=== PATIENT | female | born 1975 | race Caucasian/White ===

== ENCOUNTER 2021-10-02 09:49 | Emergency (ER) | payer BC, SELFPAY ==
[2021-10-02 09:56] VITALS: BP 173/101; PULSE 97; RESP 16; O2SAT 93
--- OUTSIDE RECORDS SUMMARY | 2021-10-02 10:05 | XMS_ITS | Continuity of Care Document ---
:1975 Author Organization Interface Problems Problem Status Onset Classification Date Comments Sourc e Date Reported Fibromyalgia 02/13/20 02/14/2021 [facility] Active 02/13/20 02/14/[facility] Phot[facility]atitis 02/12/20 02/12/2021 [facility]disorder[facility] 21 [facility] Sj?gren's syndrome 02/12/20 02/12/2021 [facility] (disorder) 21 [facility] Joint pain 02/12/20 02/12/2021 [facility] (finding[facility] [address] [place] [address] Polyarthralgia Active 02/12/20 02/12/2021 [facility] [address] [place] [address] Sicca syndrome Active 02/12/20 02/12/2021 [facility] [address] [place] [address] Photosensitivity Active 02/12/20 02/12/2021 [facility] [address] [place] [address] Procedure carried 01/29/20 01/29/2021 I [facility] Fadia out on subject 21 (situation) Elevated 01/29/20 01/29/2021 [facility] A von blood-pressure 21 reading without diagnosis of hypertension (finding) Breast neoplasm 01/29/20 01/29/2021 [facility] [place] screening status 21 (finding) Diabetic monitoring 01/29/20 01/29/2021 [facility] [place] status (finding) 21 Mild major 01/29/20 01/29/2021 [facility] IM Peds depression, single 21 [place], episode (disorder) I [facility] [place] Non-toxic 01/29/20 01/29/2021 [facility] P eds multinodular goiter 21 [place], (disorder) [facility] A von Gastroesophageal 01/29/20 01/29/2021 [facility] Fadia reflux disease with 21 esophagitis (disorder) Hypothyroidism 01/29/20 01/29/2021 [facility] [place] (disorder) 21 Systemic lupus 01/29/20 01/29/2021 [facility] Peds erythematosus 21 [facility], (disorder) [facility] A von Anemia (disorder) 01/29/20 01/29/2021 I [facility] [place] 21 Major depressive Active 01/29/20 01/29/2021 [facility] IM Peds disorder, single 21 [place], episode, mild [facility] C [place] Nontoxic Active 01/29/20 01/29/2021 [facility] IM P eds multinodular goiter 21 [place], [facility] Av on Reflux Esophagitis Active 01/29/20 01/29/2021 [facility] Fadia 21 Unspecified Active 01/29/20 01/29/2021 [facility] [place] Hypothyroidism 21 SLE (systemic lupus Active 01/29/20 01/29/2021 [facility] Peds erythematosus) 21 [place], [facility] Av on Elevated BP without Active 01/29/20 01/29/2021 [facility] Fadia diagnosis of 21 hypertension Anemia Active 01/29/20 01/29/2021 [facility] A von 21 Screening for Active 01/29/20 01/29/2021 [facility] [place] diabetes mellitus 21 Screening for Active 01/29/20 01/29/2021 [facility] [place] breast cancer 21 Screening for Active 01/29/20 01/29/2021 [facility] [place] hyperlipidemia 21 Gastritis 01/20/20 01/20/2019 [facility] (disorder) [address] [place] [address] Gastritis 01/20/20 01/20/[address] Anemia(<span Active 05/31/2021 [facility] I M Peds SB=[id number]>inder Thomasirmed</span>) [facility] [place], [facility], [facility] Breast lump(<span Resolved 05/31/2021 I [facility] IM Peds [id number]>inder Thomasirmed</span>) [facility] [place], [facility], [facility] Fibromyalgia(<span Active 05/31/2021 [facility] IM Peds [id number]>inder Thomasirmed</span>) [facility] [place], [facility], [facility] Reflux Active 05/31/2021 [facility] IM P eds Esophagitis(<span [place], [id number]>Co [facility] PC nfirmed</span>) Fadia , [facility], [facility] Unspecified Active 05/31/2021 [facility] Peds Hypothyroidism(<spa [place], n [facility] PC [id number]=[id number]>Co [place], IU nfirmed</span>) [facility] Major depressive Active 05/31/2021 IU [facility] IM Peds disorder, single [place], episode, mild(<span [facility] PC [id number]>C [place], IU onfirmed</span>) [facility], [facility] Nontoxic Active 05/31/2021 [facility] IM P eds multinodular Georget own, goiter(<span [facility] PC [id number]>Co Fadia, IU nfirmed</span>) [facility], [facility] SLE (systemic lupus Active 01/29/2021 [facility] IM Peds erythematosus)(<spa [place]q, n [facility] PC [id number]>C [place], IU onfirmed</span>) [facility] Ulcer(<span Resolved 05/31/2021 [facility] IM Peds KG=[id number]>Co [place], nfirmed</span>) [facility] [place], [facility], [facility] Elevated BP without Active 05/31/2021 [facility] PC diagnosis of [place], I U hypertension(<span [facility] [id number]>C University onfirmed</span>) Hos pital Medications Medication Details Route Status Patient Ordering Order Source Instructions Provider Date predniSONE 10 mg
10 Active [facility] oral tablet mg, = 1 021 Fadia, IU Tablet, Health Orally, University Daily, [facility] ce, Dispense: 21 Tablet, Refills: 0, Total Refills: 0, take 1 tablet daily for 2 weeks, then 1/2 tablet daily for 2 weeks, 01/28/21 11:20:00 EDT, Pharmacy: [id number], 1 Tablet Orally Daily,Ins tr:take.. . Omeprazole 20 MG
20 Active [facility] Enteric Coated mg, = 1 021 [place], IU Capsule Capsule, Health Orally, University Daily, [facility], Dispense: 30 Capsule, Refills: 11, Total Refills: 11, 01/28/21 11:20:00 EDT, Pharmacy: [id number], 1 Capsule Orally Daily, 172.7, cm, 01/28/21 10:33:00 EDT, Height CM, 99.5, kg, 01/28/21 10:36:00. .. duloxetine 60 MG
60 Active [facility] Enteric Coated mg, = 1 021 [place], IU Capsule [Cymbalta] Capsule, Heal th Orally, [facility], Dispense: 60 Capsule, Refills: 11, Total Refills: 11, (do not crush or chew), 01/28/21 11:20:00 EDT, [id number], 1 Capsule Orally BID,Instr :(do not crush or chew), 172.7, cm, 01/28/21 10:... Ranitidine 75 MG
75 Active [facility] Oral Tablet mg, = 1 019 Fadia, IU [Zantac] Tablet, Health [facility], [place] BID, PRN [facility], as needed [facility] dyspepsia , [facility], 01/19/19 11:22:27 EDT Ranitidine 75 MG
75 Active [facility] Fadia Oral Tablet mg, = 1 019 [Zantac] Tablet, Orally, BID, PRN as needed for dyspepsia [facility], 01/19/19 11:22:27 EDT 1.5 ML
225 Active [facility] PC fremanezumab-vfrm mg, 019 [place], IU 150 MG/ML [facility], Belindaer satya [Ajovy] [facility], IU Month, [facility] ce, last dose taken 12/18/18, 01/19/19 11:21:57 EDT tizanidine
4 Active [facility] PC mg, 019 Fadia, IU Orally, [facility] TID, [facility], [facility], [facility] 01/19/19 [facility] 11:21:40 EDT duloxetine 60 MG Active IU [facility] Enteric Coated 019 [place] Capsule [Cymbalta] Hospi marlen duloxetine 60 MG
60 Active [facility] PC Enteric Coated mg, = 1 019 [place], IU Capsule [Cymbalta] Tablet, Healt h Orally, [facility], 01/19/19 11:21:21 EDT Buprenorphine 0.9
900 Active [facility] MG Buccal Film mCg, = 1 019 Fadia, IU [Belbuca] Each, [facility], [place] Q12H, [facility], [facility] 07/14/18 20:06:40 EDT Buprenorphine 4.2 Active [facility] MG / Naloxone 0.7 019 [place] MG Buccal Film [facility] [Bunavail] Buprenorphine 4.2
1 Active [facility] P C MG / Naloxone 0.7 Film, 019 Fadia, IU MG Buccal Film Buccal, [facility] [Bunavail] Daily, [facility] ce, 07/14/18 20:06:15 EDT diclofenac sodium
100 Active [facility] PC 100 mg oral mg, = 1 019 [place], IU tablet, extended Tablet, Health release Orally, [facility] ce, with Hospital breakfast , 07/14/18 20:04:16 EDT Diclofenac Sodium Active [facility] I M Peds 0.01 MG/MG Topical 014 Rojelio rudy, Gel [Voltaren] [facility] Diphenhydramine Active [facility] IM Peds Hydrochloride 25 014 Georget own, MG Oral Tablet [facility] [Benadryl] [facility] Protonix Active [facility] IM Peds 014 [place], [facility] Synthroid
25 Active [facility] IM Peds mCg, 014 [place], Orally, [facility] PC Daily, [place], [facility] 05/31/13 [facility] 21:50:24, [facility] multivitamin Active [facility] IM Ped s Multiple Vitamins 014 [facility], oral tablet, [facility] Cymbalta Active [facility] IM Peds 013 [place], [facility] Allergies, Adverse Reactions, Alerts Substance Category Reaction Severity Reaction Status Date Comments S ource type Reported penicillin Assertion Drug Active [facility] P IM allergy Peds [place], [facility] Fad[place], [facility] , [facility] iodine Assertion , Hives Drug Active also [facility] I M topical<sup> allergy Seafood Ped s 1</sup> causes Georgeto wn, hives [facility] [place], [facility] , [facility] sulfa drugs Assertion Nausea Drug Active IU [facility] IM allergy Peds Ge[place]o wn, [facility] [place], [facility] , [facility] Latex Assertion Rash, Drug Active [facility] I M Hives allergy Peds [place], [facility] [place], [facility] , [facility] Seafood Assertion Drug Active [facility] I M allergy Peds [place], [facility] PC Fadia, [facility] , [facility] Immunizations Immunization Date Given Site Status Last Updated Comments Betty rce Results Order Name Results Value Reference Date Interpretation Comments Betty rce Range Urinalysis Color Ur Bhavna 01/19 [facility] [place] (01/19/19 6:01 AM) Hospit al Urinalysis Appear Ur Slightly Cloudy 01/19 [facility] [place] [facility] (01/19/19 6:01 AM) Urinalysis Spec Grav Ur 1.027 1.003 - 01/19 [facility] 1.[address] [facility] Urinalysis pH+ Ur 5.0 5.0 - 8.0 01/19 [facility] [address] [place] [address] Urinalysis Protein Ur 30 mg/dL 01/19 [facility] Urinalysis Gluc Ur Normal 01/19 [facility] mg/dL [facility] Urinalysis Ketones Ur Negative 01/19 [facility] mg/dL [facility] Urinalysis Bili Ur Negative 01/19 [facility] mg/dL [facility] Urinalysis Hgb Ur Negative 01/19 [facility] [place] *NA* [facility] (01/19/19 6:01 AM) Urinalysis Nitrite Ur Negative 01/19 [facility] [place] *NA* [facility] (01/19/19 6:01 AM) Urinalysis Urobilinogen Normal 01/19 [facility] Studies Ur mg/dL [facility] Urinalysis Leukocyte Negative 01/19 [facility] (01/19/19 6:01 AM) Urinalysis WBC Ur 0-5 /hpf 0 - 5 01/19 [facility] Urinalysis RBC Ur 0-2 /hpf 0 - 2 01/19 Health Studies [facility] Urinalysis Bacteria Ur Moderate 01/19 [facility] Studies /hpf [facility] Urinalysis Squam Few /hpf 01/19 [facility] Epithelial Ur [facility] Urinalysis Mucous Ur Present 01/19 [facility] /hpf /[address] [facility] Urinalysis Hyal Cast Ur 0-2 /lpf 01/19 [facility] Chemistry Urine HCG, POC Negative 1 01/19 Resu lt Comment: Test performed at: [facility] [address] [facility] [place] [id number] [place] *NA* [facility] (01/19/19 5:59 AM) Chemistry Lipase SerPl 10 7 - 59 01/19 [facility] QN Units/L [facility] Chemistry Estimated GFR null 01/19 [facility] (CKD-EPI) [facility] Chemistry Estimated CRCL null 01/19 [facility] (CG) [facility] Chemistry Sodium SerPl 135 135 - 145 01/19 [facility] QN mmol/L [facility] Chemistry Potassium 4.3 3.5 - 5.5 01/19 [facility] SerPl QN mmol/L [facility] Chemistry Chloride SerPl 103 98 - 108 01/19 [facility] Studies QN mmol/L [facility] Chemistry CO2 SerPl QN 22 mmol/L 22 - 29 01/19 [facility] Studies /[address] [facility] Chemistry Anion Gap 10 mmol/L 3 - 11 01/19 [facility] /[address] [facility] Chemistry Lab Glucose 104 mg/dL 70 - 99 01/19 [facility] Studies /[address] [facility] Chemistry BUN SerPl QN 14 mg/dL 5 - 20 01/19 [facility] Studies /[address] [facility] Chemistry Creatinine 0.72 0.60 - 01/19 [facility] SerPl QN mg/dL 1. [facility] Chemistry Calcium Total 9.1 mg/dL 8.5 - 10.5 01/19 [facility] Studies SerPl QN /[address] [facility] Chemistry Albumin SerPl 4.4 g/dL 3.5 - 5.0 01/19 [facility] Studies Q [facility] Chemistry Alkaline Phos 91 25 - 125 01/19 [facility] Studies SerPl QN Units/L [facility] Chemistry ALT SerPl QN 26 7 - 52 01/19 [facility] Units/L /[address] [facility] Chemistry AST SerPl QN 26 13 - 39 01/19 [facility] Units/L /[address] [facility] Chemistry Bilirubin 0.5 mg/dL 0.0 - 1.0 01/19 [facility] Studies Total SerPl QN /[address] [facility] Chemistry Total Protein 7.3 g/dL 6.4 - 8.0 01/19 [facility] Studies SerPl QN [facility] Chemistry Troponin-I Pl null 01/19 [facility] Q [facility] Hematology WBC 9.6 3.6 - 10.6 01/19 [facility] K/cumm /[address] [facility] Hematology RBC 5.21 3.71 - 01/19 [facility] Million/C 5. [facility] Hgb 13.9 g/dL 12.0 - 01/19 [facility] 15.[address] [facility] Hematology Hct 42.5 % 35.0 - 01/19 [facility] 49.[address] [facility] Hematology MCV 82 fL 81 - 99 01/19 [facility] /[address] [facility] Hematology MCH 26.7 pg 27.0 - 01/19 [facility] 34.[address] [facility] Hematology MCHC 32.7 g/dL 32.0 - 01/19 [facility] 36.[address] [facility] Hematology RDW 14.6 % 11.5 - 01/19 Health Studies [address] [facility] Hematology Platelet 320 150 - 450 01/19 Health Studies K/ [facility] Hematology MPV 8.6 fL 7.0 - 12.0 01/[address] [facility] Chemistry Urine HCG, POC Negative 2 07/05 Resu lt Comment: Test performed at: [facility] [address] Health [place] [address] [facility] (07/05/18 12:45 PM) Hematology Hct 40.8 % 35.0 - 03 Health Studies 49.[address] [facility] Hematology MCV 82 fL 81 - 99 07/05 Health Studies [facility] Hematology WBC 8.7 3.6 - 10.6 07/05 Health Studies K/ [facility] Hematology MCH 28.3 pg 27.0 - 07/05 Health Studies 34.[address] [facility] Hematology RBC 4.96 3.71 - 07/05 Health Studies Million/C 5.17 [facility] Hgb 14.0 g/dL 12.0 - 07/05 Health Studies 15.[address] [facility] Hematology MCHC 34.3 g/dL 32.0 - 07/05 Health Studies 36.[address] [facility] Hematology RDW 14.4 % 11.5 - 07/05 Health Studies [address] [facility] Hematology Platelet 253 150 - 450 07/05 Health Studies K/ [facility] Hematology MPV 8.4 fL 7.0 - 12.0 07/05 Health Studies [facility] Chemistry Estimated GFR null >=90 07/05 Healt h Studies (CKD-EPI) [facility] Chemistry Chloride SerPl 104 98 - 108 07/05 [facility] Studies QN mmol/L [facility] Chemistry Potassium 5.4 3.5 - 5.5 07/05 Result Health Studies SerPl QN mmol/L /2018 Comment: [facility] hemolyzed Chemistry Calcium Total 9.2 mg/dL 8.5 - 10.5 07/05 Health Studies SerPl QN [facility] Chemistry Creatinine 0.58 0.60 - 07/05 [facility] Studies SerPl QN mg/dL 1.20 /[address] [facility] Chemistry Sodium SerPl 134 135 - 145 07/05 [facility] th Studies QN mmol/L [facility] Chemistry CO2 SerPl QN 22 mmol/L 22 - 07/05 [facility] Chemistry Anion Gap 8 mmol/L 3 - 11 07/05 [facility] Chemistry Lab Glucose 95 mg/dL 70 - 99 07/05 [facility] Chemistry BUN SerPl QN 11 mg/dL 5 - 07/05 [facility] Vital Signs Vital Sign Value Date Comments Source IBW Charted per RT 63.88 kg 02/11/2021 [facility] Height CM 172.7 cm 02/11/2021 [facility] Hospital Weight KG 98.9 kg 02/11/2021 [facility] BSAM2 Weight in kg 2.18 m2 02/11/2021 [facility] BMI Weight in kg 33.2 kg/m2 02/11/2021 [facility] Temperature 36.0 Migd[place] 02/11/2021 [facility] Temperature Far 96.8 [degF] 02/11/2021 [facility] Calculated Hospital Heart Rate 96 bpm 02/11/2021 [facility] Respiratory Rate 16 br/min 02/11/2021 [facility] O2 Sats 97 % 02/11/2021 [facility] Systolic Blood 143 mm[Hg] 02/11/2021 [facility] Pressure #1 Hospital Diastolic Blood 87 mm[Hg] 02/11/2021 [facility] Pressure #1 Hospital Mean Arterial Pressure 106 mm[Hg] 02/11/2021 [facility] University #1 Calculated Hospital IBW Charted per RT 63.88 kg 01/28/2021 [facility] A von Height CM 172.7 cm 01/28/2021 [facility] [place] Weight KG 99.5 kg 01/28/2021 [facility] [place] BSAM2 Weight in kg 2.18 m2 01/28/2021 [facility] A von BMI Weight in kg 33.4 kg/m2 01/28/2021 [facility] Jevon n Temperature 36.5 Migdalia 01/28/2021 [facility] [place] Temperature Far 97.7 [degF] 01/28/2021 [facility] [place] Calculated Heart Rate 107 bpm 01/28/2021 [facility] [place] O2 Sats 98 % 01/28/2021 [facility] [place] Systolic Blood 155 mm[Hg] 01/28/2021 [facility] [place] Pressure #1 Diastolic Blood 99 mm[Hg] 01/28/2021 [facility] [place] Pressure #1 Mean Arterial Pressure 118 mm[Hg] 01/28/2021 [facility] [place] #1 Calculated BP # 1 Method Automatic/Non 01/28/2021 [facility] [place] Invasive
(01/28/21 10:33 AM) BP # 1 Location Arm, Upper Right 01/28/2021 [facility] [place]
(01/28/21 10:33 AM) BP # 1 Position Sitting
(01/28/21 01/28/2021 [facility] [place] 10:33 AM) Temperature 37.1 Migdalia 01/19/2019 [facility] Temperature Method Oral
(01/19/19 01/19/2019 [facility] 11:56 AM) Hospital Temperature Far 98.8 [degF] 01/19/2019 [facility] st Calculated Hospital Weight KG 96.63 kg 01/19/2019 [facility] Weight method Actual - Bed Scale 01/19/2019 [facility]
(01/19/19 11:00 Hospital AM) Height CM 172.8 cm 01/19/2019 [facility] Height method Reported 01/19/2019 [facility]
(01/19/19 11:00 Hospital AM) BSAM2 Weight in kg 2.15 m2 01/19/2019 [facility] IBW Charted per RT 63.97 kg 01/19/2019 [facility] O2 Sats 98 % 01/19/2019 [facility] BP # 1 MAP 97 mm[Hg] 01/19/2019 [facility] Systolic Blood 136 mm[Hg] 01/19/2019 [facility] t Pressure #1 Hospital Diastolic Blood 79 mm[Hg] 01/19/2019 [facility] st Pressure #1 Hospital Heart Rate 80 bpm 01/19/2019 [facility] Heart Rate Method Pulse Oximeter 01/19/2019 [facility]
(01/19/19 8:51 Hospital AM) Respiratory Rate 20 br/min 01/19/2019 [facility] Hospital Respiratory Rate Observation 01/19/2019 [facility] Method
(01/19/19 8:51 Hospital AM) O2 Delivery Mode Room air 01/19/2019 [facility]
(01/19/19 8:51 Hospital AM) Mean Arterial Pressure 98 mm[Hg] 01/19/2019 [facility] [place] #1 Calculated Hospital Last Vital Signs VITAL SIGNS Temp F: 01/19/2019 [facility] Documented Temp C: 36.4 Deg Hospital (01-19-2019 04:52) Heart Rate: 94 bpm (01-19-2019 04:52) Resp Rate: 20 br/min (01-19-2019 04:52) Peripheral Pulse Rate: BP #1: 148 / 119 mmHg (01-19-2019 04:52) SpO2 (%): 99 % (01-19-2019 04:52) O2 Flow (l/min): O2 Device: Room air (01-19-2019 04:52) FiO2 (%): IBW Charted per RT 63.88 kg 01/19/2019 [facility] Weight KG 100.6 kg 01/19/2019 [facility] Height CM 172.7 cm 01/19/2019 [facility] Weight method Actual - Standing 01/19/2019 [facility]
(01/19/19 4:52 Hospital AM) Temperature 36.4 Migdalia 01/19/2019 [facility] Heart Rate 94 bpm 01/19/2019 [facility] Respiratory Rate 20 br/min 01/19/2019 [facility] Systolic Blood 148 mm[Hg] 01/19/2019 [facility] t Pressure #1 Hospital Diastolic Blood 119 mm[Hg] 01/19/2019 [facility] st Pressure #1 Hospital O2 Sats 99 % 01/19/2019 [facility] O2 Delivery Mode Room air 01/19/2019 [facility]
(01/19/19 4:52 Hospital AM) Temperature Method Oral
(01/19/19 01/19/2019 [facility] 4:52 AM) Hospital Heart Rate Method Pulse Oximeter 01/19/2019 [facility]
(01/19/19 4:52 Hospital AM) Respiratory Rate Observation 01/19/2019 [facility] Method
(01/19/19 4:52 Hospital AM) BP # 1 Method Automatic/Non 01/19/2019 [facility]
(01/19/19 4:52 AM) Temperature Far 97.5 [degF] 01/19/[address] [facility] [address] Calculated Hospital Mean Arterial Pressure 129 mm[Hg] 01/19/2019 [facility] #1 Calculated Hospital IBW Charted per RT 63.88 kg 07/08/2018 [facility] IM P eds [place] Systolic Blood 163 mm[Hg] 07/08/2018 [facility] IM Peds Pressure #1 [place] Diastolic Blood 99 mm[Hg] 07/08/2018 [facility] IM Peds Pressure #1 [place] Heart Rate 90 bpm 07/08/2018 [facility] IM Peds [place] Mean Arterial Pressure 120 mm[Hg] 07/08/2018 [facility] IM Peds #1 Calculated [place] Temperature Far 97.9 [degF] 07/08/2018 [facility] IM Peds Calculated [place] Temperature 36.6 Migdalia 07/08/2018 [facility] IM Peds [place] Weight KG 96.0 kg 07/08/2018 [facility] Height CM 172.7 cm 07/08/2018 [facility] BMI Weight in kg 32.2 kg/m2 07/08/2018 [facility] BSAM2 Weight in kg 2.15 m2 07/08/2018 [facility] [place] Last Vital Signs VITAL SIGNS Temp [facility]: [facility] Temp C: 36.9 Deg Hospital (07-05-2018 10:32) Heart Rate: 98 bpm (07-05-2018 10:32) Resp Rate: 18 br/min (07-05-2018 10:32) Peripheral Pulse Rate: BP #1: 148 / 93 mmHg (07-05-2018 10:32) SpO2 (%): 97 % (07-05-2018 10:32) O2 Flow (l/min): O2 Device: Room air (07-05-2018 10:32) FiO2 (%): Systolic Blood 148 mm[Hg] 07/05/2018 [facility] t Pressure #1 Hospital Diastolic Blood 93 mm[Hg] 07/05/2018 [facility] st Pressure #1 Hospital Temperature 36.9 [place] 07/05/2018 [facility] Weight KG 95.6 kg 07/05/2018 [facility] Weight method Actual - Standing 07/05/2018 [facility]
(07/05/18 10:32 Hospital AM) Heart Rate 98 bpm 07/05/2018 [facility] Respiratory Rate 18 br/min 07/05/2018 [facility] Heart Rate Method Pulse Oximeter 07/05/2018 [facility]
(07/05/18 10:32 Hospital AM) Respiratory Rate Observation 07/05/2018 [facility] Method
(07/05/18 10:32 Hospital AM) BP # 1 Method Automatic/Non 07/05/2018 [facility] t Invasive
(07/05/18 Hospit al 10:32 AM) Temperature Far 98.4 [degF] 07/05/2018 [facility] st Calculated Hospital Mean Arterial Pressure 111 mm[Hg] 07/05/2018 [facility] [place] #1 Calculated Hospital O2 Sats 97 % 07/05/2018 [facility] O2 Delivery Mode Room air
(07/05/18 07/05/2018 [facility] 10:32 AM) Hospital Temperature Method Oral
(07/05/18 07/05/2018 [facility] 10:32 AM) Hospital Encounters Location Location Encounter Encounter Reason Attending ADM DC Stat us Source Details Type Number For Provider Date Date Visit [facility] Emergency [id number] Medicine 07/05 07/05 [facility] Emergency /2018 [facility] IM Peds Outpatient [id number] Miguelito 07/08 07/09 [facility] [place] /2018 P eds Georgeto wn [facility] Observation [id number] Jes 01/19 01/19 [facility] [place] /2018 [facility] Outpatient [id number] Angela Lillianm 01/24 01/25 [facility] [place] /2020 [place] [facility] Outpatient [id number] Angela Berkem 01/28 01/29 [facility] [place] /2020 [place] [facility] Out[facility] [id number] Beverly 02/11 02/12 [facility] OUTPATIENTME 0 02/12 02/13 [facility] [place] SS[facility] /2020 [place] [facility] Outpatient [id number] Angela Berkem 05/30 05/31 [facility] [place] /2021 [place] Procedures Procedure Code Date Perfomer Comments Source Cholecystectomy 04/27/2013 [facility] Laparoscopic [place] Cholecystectomy 04/27/2013 [facility] Cholecystectomy 04/27/2013 [facility] Laparoscopic Cholecystectomy 04/27/2013 [facility] Bone Graft to Left Forearm 01/31/2013 [facility] Fracture [place] Bone Graft to Left Forearm 01/31/2013 [facility] Bone Graft to Left Forearm 01/31/2013 [facility] [place] Fracture Bone Graft to Left Forearm 01/31/2013 [facility] ORIF Left Forearm Fracture 05/03/2012 [facility] Repair [place] ORIF Left Forearm Fracture 05/03/2012 [facility] ORIF Left Forearm Fracture 05/03/2012 [facility] [place] Repair ORIF Left Forearm Fracture 05/03/2012 [facility] Hysterectomy 05/03/2008 [facility] [place] Hysterectomy 05/03/2008 [facility] Hysterectomy 05/03/2008 [facility] [place] Hysterectomy 05/03/2008 [facility] Shoulder Arthroscopic 05/03/2007 [facility] Procedure [place] Shoulder Arthroscopic 05/03/2007 [facility] Shoulder Arthroscopic 05/03/2007 [facility] [place] Procedure Shoulder Arthroscopic 05/03/2007 [facility] Endoscopy 05/03/2006 [facility] Endoscopy 05/03/2006 [facility] Endoscopy 05/03/2006 [facility] [place] Endoscopy 05/03/2006 [facility] Breast Biopsy [facility] Breast Biopsy [facility] Breast Biopsy [facility] [place] [facility] Breast Biopsy [facility]
--- OUTSIDE RECORDS SUMMARY | 2021-10-02 10:05 | XMS_ITS | Continuity of Care Document ---
:1975 Author Organization [facility] Address Unavailable , Care Team Providers Name Role Phone None, None Primary Care Physician Unavailable Encounter German Maguire [id number] Date(s): 07/05/18 - 07/05/18 [facility] [address] [place] [address]- [facility] Discharge Disposition: Routine Discharge Attending Physician: Emergency Services, Medicine Admitting Physician: Emergency Services, Medicine Referring Physician: None, None Allergies, Adverse Reactions, Alerts Substance Reaction Severity Status penicillin Active iodine topical1 Active Hives sulfa drugs Nausea Severe Active Latex Rash Active Hives Seafood Active 1also Seafood causes hives Medications Benadryl 25 mg oral tablet 50 mg, = 2 Tablet, Orally, At Bedtime, Maintenance, 08/22/13 11:43:31, Supply Start Date: 08/22/13 Status: OrderedCymbalta 60 mg, Orally, BID, Maintenance, Refills: 0, Total Refills: 0, 09/17/12 17:57:06 Start Date: 09/17/12 Status: Orderedmultivitamin Multiple Vitamins oral tablet, chewable 1 Tablet, Orally, Daily, Maintenance, 05/03/13 12:14:34, Supply Start Date: 05/03/13 Status: OrderedProtonix 40 mg, Orally, Daily, Maintenance, 05/31/13 21:50:53, Supply Start Date: 05/31/13 Status: OrderedSynthroid 25 mCg, Orally, Daily, Maintenance, 05/31/13 21:50:24, Supply Start Date: 05/31/13 Status: OrderedVoltaren Topical 1% topical gel 2 GM, Topical, 4 Times Daily, PRN yes, Maintenance, not to exceed 16 grams/day/single joint of lowerextremities Apply to Right Knee, pain, 08/22/13 11:47:27, Supply Start Date: 08/22/13 Status: Ordered Mental Status 07/05/18 Eye Opening Response Spontaneously Motor Response [place] 3 Obeys Commands Verbal Response Luis Fernando Oriented [place] Coma Score 15 Problem List Condition Effective Dates Status Health Status Informant Anemia(Confirmed) Resolved Breast lump(Confirmed) Resolved Fibromyalgia(Confirmed) Active Reflux Esophagitis(Confirmed) Active Unspecified Active Hypothyroidism(Confirmed) Nontoxic multinodular Active goiter(Confirmed) Ulcer(Confirmed) Resolved Procedures Procedure Date Related Diagnosis Body Site Status Cholecystectomy Laparoscopic 04/27/13 Completed Bone Graft to Left Forearm Fracture 01/2013 Completed ORIF Left Forearm Fracture Repair 2012 Completed Hysterectomy 2008 Completed Shoulder Arthroscopic Procedure 2007 Completed Endoscopy 2006 Completed Breast Biopsy Completed Results Laboratory List Name Date Urine HCGi, POC 07/05/18 CBC 07/05/18 Basic Metabolic Panel (BMP) 07/05/18 Most recent to oldest [Reference Range]: 1 Estimated GFR (CKD-EPI) [>=90 mL/min/1.73m2] >90 mL/mi n/1.73m2 (07/05/18 12:01 PM) Anion Gap [3-11 mmol/L] 8 mmol/L (07/05/18 12:01 PM) Hct [35.0-49.0 %] 40.8 % (07/05/18 12:11 PM) Hgb [12.0-15.0 GM/dL] 14.0 GM/dL (07/05/18 12:11 PM) MCH [27.0-34.0 pg] 28.3 pg (07/05/18 12:11 PM) MCHC [32.0-36.0 GM/dL] 34.3 GM/dL (07/05/18 12:11 PM) MCV [81-99 fL] 82 fL (07/05/18 12:11 PM) MPV [7.0-12.0 fL] 8.4 fL (07/05/18 12:11 PM) Platelet [150-450 k/cumm] 253 k/cumm (07/05/18 12:11 PM) RBC [3.71-5.17 million/cumm] 4.96 million/cumm (07/05/18 12:11 PM) RDW [11.5-14.5 %] 14.4 % (07/05/18 12:11 PM) WBC [3.6-10.6 k/cumm] 8.7 k/cumm (07/05/18 12:11 PM) Creatinine SerPl QN [0.60-1.20 mg/dL] 0.58 mg/dL *LOW* (07/05/18 12:01 PM) Sodium SerPl QN [135-145 mmol/L] 134 mmol/L *LOW* (07/05/18 12:01 PM) Potassium SerPl QN [3.5-5.5 mmol/L] 5.4 mmol/L 1 (07/05/18 12:01 PM) Chloride SerPl QN [98-108 mmol/L] 104 mmol/L (07/05/18 12:01 PM) Carbon Dioxide SerPl QN [22-29 mmol/L] 22 mmol/L (07/05/18 12:01 PM) Glucose SerPl QN [70-99 mg/dL] 95 mg/dL (07/05/18 12:01 PM) BUN SerPl QN [5-20 mg/dL] 11 mg/dL (07/05/18 12:01 PM) Calcium Total SerPl QN [8.5-10.5 mg/dL] 9.2 mg/dL (07/05/18 12:01 PM) Urine HCG, POC Negative 2 *NA* (07/05/18 12:45 PM) 1Result Comment: Moderately [id number] Comment: Test performed at: [facility] [address] [place] [address] Vital Signs Most recent to oldest [Reference Range]: 1 Blood Pressure [90-140/60-90 mmHg] 148/93 mmHg *HI* (07/05/18 10:32 AM) Heart Rate [60-100 bpm] 98 bpm (07/05/18 10:32 AM) Last Vital Signs Documented VITAL SIGNS Temp F: Temp C: 36.9 DegC ( 10:32) Heart Rate: 98 bpm (07-06-19 19 10:32) Resp Rate: 18 br/min (2018 10:32) Peripheral Pulse Rate: BP #1: 148 / 93 mmHg (2018 10:32) SpO2 (%): 97 % (07-05-2018 1 0:32) O2 Flow (l/min): O2 Device: Room air ( 019 10:32) FiO2 (%): (07/05/18 12:19 PM) Mean Arterial Pressure #1 Calculated 111 mmHg (07/05/18 10:32 AM) Method BP #1 Automatic/Non Invasive (07/05/18 10:32 AM) Method Heart Rate Pulse Oximeter (07/05/18 10:32 AM) Method Respiratory Rate Observation (07/05/18 10:32 AM) Oxygen Delivery Room air (07/05/18 10:32 AM) Oxygen Saturation [92-100 %] 97 % (07/05/18 10:32 AM) Respiratory Rate [12-20 br/min] 18 br/min (07/05/18 10:32 AM) Temperature [place] [36.4-38.3 DegC] 36.9 DegC (07/05/18 10:32 AM) Temperature Far Calculated [97.6-100.9 DegF] 98.4 DegF (07/05/18 10:32 AM) Temperature Method Oral (07/05/18 10:32 AM) Weight KG 95.6 kg (07/05/18 10:32 AM) Weight method Actual - Standing (07/05/18 10:32 AM) Social History Social History Type Response Smoking Status Never Smoker entered on: 11/11/14 Sex Hospital Discharge Instructions Patient Zvcajgnwg04/05/2019 10:24:45DERMATITIS, Non-SpecificNonspecific Dermatitis Dermatitis is a skin rash caused by something that touches the skin and makes it irritated and inflamed.?? Your skin may be red, swollen, dry, and may be cracked. Blisters may form and ooze. The rash will itch. Dermatitis can form on the face and neck, backs of hands, forearms, genitals, and lower legs. Dermatitis is not passed from person to person. Talk with your health care provider about what may have caused the rash. Common things that cause skin allergies are metal in jewelry, plants like poison alicja or poison oak, and certain skin care products. You will need to avoid the source of your rash in the future to prevent it from coming back. In some cases, the cause of the dermatitis may not be found. Treatment is done to relieve itching and prevent the rash from coming back. The rash should go away in a few days to a few weeks. Home care The health care provider may prescribe medications to relieve swelling and itching. Follow all instructions when using these medications. ??? Avoid anything that heats up your skin, such as hot showers or baths, or direct sunlight. This can make itching worse. ??? Stay away from whatever you think caused the rash. ??? Bathe in warm, not hot, water. Apply a moisturizing lotion after bathing to prevent dry skin. ??? Avoid skin irritants such as wool or silk clothing, grease, oils, harsh soaps, and detergents. ??? Apply cold compresses to soothe your sores to help relieve your symptoms. Do this for 30 minutes3 to 4 times a day. You can make a cold compress by soaking a cloth in cold water. Squeeze out excess water. You can add colloidal oatmeal to the water to help reduce itching. For severe itching in a small area, apply an ice pack wrapped in a thin towel. Do this for 20 minutes 3 to 4 times a day. ??? You can also help relieve large areas of itching by taking a lukewarm bath with colloidal oatmeal added to the water. ??? Use hydrocortisone cream for redness and irritation, unless another medicine was prescribed. Youcan also use benzocaine anesthetic cream or spray. ??? Use oral diphenhydramine to help reduce itching. This is an antihistamine you can buy at drug and grocery stores. It can make you sleepy, so use lower doses during the daytime. Or you can use loratadine. This is an antihistamine that will not make you sleepy. Don???t use diphenhydramine if you have glaucoma or have trouble urinating because of an enlarged prostate. ??? Wash your hands or use an antibacterial gel often to prevent the spread of the rash. Follow-up care Follow up with your health care provider. Make an appointment with your health care provider if yoursymptoms do not get better in the next 1 to 2 weeks. When to seek medical advice Call your health care provider right away??if any of these occur: ??? Spreading of the rash to other parts of your body ??? Severe swelling of your face, eyelids, mouth, throat or tongue ??? Trouble urinating due to swelling in the genital area ??? Fever of 100.4??F (38??C) or higher ??? Redness or swelling that gets worse ??? Pain that gets worse ??? Foul-smelling fluid leaking from the skin ??? Yellow-brown crusts on the open blisters ??? Joint pain ?? [id number] [employer]. [address] [place] [address], [place] [address]. All rights reserved. This information is not intended as a substitute for professional medical care. Always follow your healthcare professional's instructions. [facility] - High Blood Pressure - to be confirmedHigh Blood Pressure - to be confirmed Your blood pressure was higher today than normal. Sometimes anxiety or pain can cause a temporary rise in blood pressure that later returns to normal. If your blood pressure is high on one measurement,this does not mean that you have hypertension (a chronic illness). However, you must have your bloodpressure measured again within the next few days to find out if it???s still high. A normal blood pressure is 120/80 or less. The first (top) number is the systolic pressure. The second (bottom) number is the diastolic pressure. Blood pressure in the range of 120-140 (systolic) or 80-89 (diastolic) is considered pre-hypertension. This means your are at risk for getting hypertension. You should have regular blood pressure checks to be sure your blood pressure is not rising. FOLLOW UP: You???re blood pressure was out of the normal range during your visit. Follow up with your Primary Provider for your blood pressure. If you do not have a Primary Provider call [phone] or go to [email or web address] for a referral to an appropriate provider in your area. DO NOT PUT THIS OFF! Untreated high blood pressure increases the risk for heart attack and stroke. It is a treatable condition. GET PROMPT MEDICAL ATTENTION if any of the following occur: ??? Chest pain or shortness of breath ??? Severe headache ??? Throbbing or rushing sound in the ears ??? Nosebleed ??? Sudden severe abdominal pain ??? Extreme drowsiness, confusion or fainting ??? Dizziness or vertigo (dizziness with spinning sensation) ??? Weakness of an arm or leg or one side of the face ??? Difficulty with speech or vision ??? Any other new or worsening symptoms or any other concerns ?? [id number] [facility], [address] [place] [address], [place] [address]. All rights reserved. This information is not intended as a substitute for professional medical care. Always follow your healthcare professional's instructions.
--- OUTSIDE RECORDS SUMMARY | 2021-10-02 10:06 | XMS_ITS | Continuity of Care Document ---
:1975 Author Organization [facility] [place] Address [address] [place] [place] [address]- Care Team Providers Name Role Phone Reginald Masters Primary Care Physician Encounter Omardeon Andrez [id number] Date(s): 01/28/21 - 01/28/21 [facility] [place] [address] [place] [address]- Encounter Diagnosis Fibromyalgia (Discharge Diagnosis) - 01/28/21 Major depressive disorder, single episode, mild (Discharge Diagnosis) - 01/28/21 Nontoxic multinodular goiter (Discharge Diagnosis) - 01/28/21 Reflux Esophagitis (Discharge Diagnosis) - 01/28/21 Unspecified Hypothyroidism (Discharge Diagnosis) - 01/28/21 SLE (systemic lupus erythematosus) (Discharge Diagnosis) - 01/28/21 Anemia (Discharge Diagnosis) - 01/28/21 Elevated BP without diagnosis of hypertension (Discharge Diagnosis) - 01/28/21 Screening for breast cancer (Discharge Diagnosis) - 01/28/21 Screening for diabetes mellitus (Discharge Diagnosis) - 01/28/21 Screening for hyperlipidemia (Discharge Diagnosis) - 01/28/21 Discharge Disposition: Routine Discharge Attending Physician: Angela Lyon NP Admitting Physician: Angela Lyon NP Referring Physician: Angela Lyon NP Allergies, Adverse Reactions, Alerts Substance Reaction Severity Status penicillin Active iodine topical1 Hives Active Seafood Active sulfa drugs Nausea Severe Active Latex Rash Active Hives 1also Seafood causes hives Assessment and Plan Future Scheduled TestsLaboratoryFerritin SerPl QN 01/28/21Hgb A1C HPLC Bld QN 01/28/21Lipid Panel SerPl QN 01/28/21Vitamin B12 SerPl QN 01/28/21Iron Profile 01/28/21TSH w FreeT4 reflex 01/28/21 Medications Ajovy 225 mg/1.5 mL subcutaneous solution 225 mg, Subcutaneous, Every Month, Maintenance, last dose taken 12/18/18, 01/19/19 11:21:57 EDT Start Date: 01/19/19 Status: OrderedBelbuca 900 mCg buccal film 900 mCg, = 1 Each, Buccal, Q12H, Maintenance, 07/14/18 20:06:40 EDT Start Date: 07/14/18 Status: OrderedBunavail 4.2 mg-0.7 mg buccal film 1 Film, Buccal, Daily, Maintenance, 07/14/18 20:06:15 EDT Start Date: 07/14/18 Status: OrderedCymbalta 60 mg oral delayed release capsule 60 mg, = 1 Tablet, Orally, BID, Maintenance, 01/19/19 11:21:21 EDT Start Date: 01/19/19 Status: OrderedCymbalta 60 mg oral delayed release capsule 60 mg, = 1 Capsule, Orally, BID, Maintenance, Dispense: 60 Capsule, Refills: 11, Total Refills: 11, (do not crush or chew), 01/28/21 11:20:00 EDT, Pharmacy: [facility]/pharmacy #[id number], 1 Capsule Orally BID,Instr:(do not crush or chew), 172.7, cm, 01/28/21 10:... Start Date: 01/28/21 Status: Ordereddiclofenac sodium 100 mg oral tablet, extended release 100 mg, = 1 Tablet, Orally, Daily, Maintenance, with breakfast, 07/14/18 20:04:16 EDT Start Date: 07/14/18 Status: Orderedomeprazole 20 mg oral delayed release capsule 20 mg, = 1 Capsule, Orally, Daily, Maintenance, Dispense: 30 Capsule, Refills: 11, Total Refills: 11, 01/28/21 11:20:00 EDT, Pharmacy: [facility]/pharmacy #[id number], 1 Capsule Orally Daily, 172.7, cm, 01/28/21 10:33:00 EDT, Height CM, 99.5, kg, 01/28/21 10:36:00... Start Date: 01/28/21 Status: OrderedpredniSONE 10 mg oral tablet 10 mg, = 1 Tablet, Orally, Daily, Maintenance, Dispense: 21 Tablet, Refills: 0, Total Refills: 0, take 1 tablet daily for 2 weeks, then 1/2 tablet daily for 2 weeks, 01/28/21 11:20:00 EDT, Pharmacy: [facility]/pharmacy #[id number], 1 Tablet Orally Daily,Instr:take... Start Date: 01/28/21 Status: OrderedSynthroid 25 mCg, Orally, Daily, Maintenance, 05/31/13 21:50:24, Supply Start Date: 05/31/13 Status: OrderedtiZANidine 4 mg, Orally, TID, Maintenance, 01/19/19 11:21:40 EDT Start Date: 01/19/19 Status: OrderedZantac 75 oral tablet 75 mg, = 1 Tablet, Orally, BID, PRN as needed for dyspepsia, Maintenance, 01/19/19 11:22:27 EDT Start Date: 01/19/19 Status: Ordered Mental Status 01/28/21 Feeling Down, Depressed, Hopeless Not at all Little Interest - Pleasure in Activities Not at All Initial Depression Screen Score 0 Problem List Condition Effective Dates Status Health Status Informant Anemia(Confirmed) Active Breast lump(Confirmed) Resolved Elevated BP without diagnosis of Active hypertension(Confirmed) Fibromyalgia(Confirmed) Active Reflux Esophagitis(Confirmed) Active Unspecified Active Hypothyroidism(Confirmed) Major depressive disorder, single Active episode, mild(Confirmed) Nontoxic multinodular Active goiter(Confirmed) SLE (systemic lupus Active erythematosus)(Confirmed) Ulcer(Confirmed) Resolved Diagnosis Diagnosis Type Effective Dates Health Clinical Infor mant Status Service Fibromyalgia Discharge 01/28/21 Diagnosis Major depressive Discharge 01/28/21 disorder, single Diagnosis episode, mild Nontoxic Discharge 01/28/21 multinodular goiter Diagnosis Reflux Esophagitis Discharge 01/28/21 Diagnosis Unspecified Discharge 01/28/21 Hypothyroidism Diagnosis SLE (systemic lupus Discharge 01/28/21 erythematosus) Diagnosis Elevated BP without Discharge 01/28/21 diagnosis of Diagnosis hypertension Anemia Discharge 01/28/21 Diagnosis Screening for Discharge 01/28/21 diabetes mellitus Diagnosis Screening for breast Discharge 01/28/21 cancer Diagnosis Screening for Discharge 01/28/21 hyperlipidemia Diagnosis Procedures Procedure Date Related Diagnosis Body Site Status Cholecystectomy Laparoscopic 04/27/13 Completed Bone Graft to Left Forearm Fracture 01/2013 Completed ORIF Left Forearm Fracture Repair 2012 Completed Hysterectomy 2008 Completed Shoulder Arthroscopic Procedure 2007 Completed Endoscopy 2006 Completed Breast Biopsy Completed Vital Signs Most recent to oldest [Reference Range]: 1 BMI Weight in kg 33.4 kg/m2 (01/28/21 10:33 AM) BP Site #1 Arm, Upper Right (01/28/21 10:33 AM) BP Type #1 Sitting (01/28/21 10:33 AM) BSAM2 Weight in kg 2.18 m2 (01/28/21 10:33 AM) Blood Pressure [90-140/60-90 mmHg] 155/99 mmHg *HI* (01/28/21 10:33 AM) Heart Rate [60-100 bpm] 107 bpm *HI* (01/28/21 10:33 AM) Height CM 172.7 cm (01/28/21 10:33 AM) [place] Body Weight 63.88 kg (01/28/21 10:33 AM) Mean Arterial Pressure #1 Calculated 118 mmHg (01/28/21 10:33 AM) Method BP #1 Automatic/Non Invasive (01/28/21 10:33 AM) Oxygen Saturation [92-100 %] 98 % (01/28/21 10:33 AM) Temperature [place] [36.4-38.3 DegC] 36.5 DegC (01/28/21 10:33 AM) Temperature Far Calculated [97.6-100.9 DegF] 97.7 DegF (01/28/21 10:33 AM) Weight KG 99.5 kg (01/28/21 10:33 AM) Social History Social History Type Response Smoking Status Never (less than 100 in life time) entered on: 01/28/21 Sex
--- OUTSIDE RECORDS SUMMARY | 2021-10-02 10:06 | XMS_ITS | Continuity of Care Document ---
:1975 Author Organization [facility] [place] Address [address] [place] [address]- Care Team Providers Name Role Phone Reginald Masters Primary Care Physician Encounter Omardeon Andrez [id number] Date(s): 05/30/21 - 05/30/21 [facility] [place] [address] [place] [address]- Discharge Disposition: Routine Discharge Attending Physician: Angela Lyon NP Admitting Physician: Angela Lyon NP Referring Physician: Angela Lyon NP Allergies, Adverse Reactions, Alerts Substance Reaction Severity Status penicillin Active iodine topical1 Active Hives Latex Rash Active Hives Seafood Active sulfa drugs Nausea Severe Active 1also Seafood causes hives Assessment and Plan Future Scheduled TestsLaboratoryRNA Polymerase 3 AB 02/11/21Vitamin D Total 02/11/21Ferritin SerPl QN 01/28/21CBC w/Differential 02/11/21C3 Complement Ser QN 02/11/21C4 Complement Ser QN 02/11/21Comp Metabolic Panel 02/11/21CRP SerPl QN 02/11/21CK SerPl QN 02/11/21Hgb A1C HPLC Bld QN 01/28/21Lipid Panel SerPl QN 01/28/21PRT/ADMITTING OFFICER Ratio UR 02/11/21RF QN 02/11/21Vitamin B12 SerPl QN 01/28/21Sed Rate 02/11/21Urinalysis Complete 02/11/21Anti-dsDNA QN 02/11/21Iron Profile 01/28/21Hepatitis B Surf Ag QL w/Confirm Rflx 02/11/21Hepatitis C Ab QL 02/11/21 Hepatitis B Core Ab QL 02/11/21TSH w FreeT4 reflex 01/28/21ENA SS-A/SS-B Ab EIA 02/11/21 Medications Ajovy 225 mg/1.5 mL subcutaneous solution [...] crush or chew), 01/28/21 11:20:00 EDT, Pharmacy: [facility]/pharmacy #[id number], 1 Capsule Orally BID,Instr:(do not crush [...] Total Refills: 11, 01/28/21 11:20:00 EDT, Pharmacy: [facility]/pharmacy #[id number], 1 Capsule Orally Daily, 172.7, cm, 01/28/21 10:33:00 EDT, Height CM, 99.5, kg, 01/28/21 10:36:00... Start Date: 01/28/21 Status: OrderedpredniSONE 10 mg oral tablet 10 mg, = 1 Tablet, Orally, Daily, Maintenance, Dispense: 21 Tablet, Refills: 0, Total Refills: 0, take 1 tablet daily for 2 weeks, then 1/2 tablet daily for 2 weeks, 01/28/21 11:20:00 EDT, Pharmacy: [facility]/pharmacy #[id number], 1 Tablet Orally Daily,Instr:take... Start Date: 01/28/21 Status: OrderedSynthroid 25 mCg, Orally, Daily, Maintenance, 05/31/13 21:50:24, Supply Start Date: 05/31/13 Status: OrderedtiZANidine 4 mg, Orally, TID, Maintenance, 01/19/19 11:21:40 EDT Start Date: 01/19/19 Status: OrderedZantac 75 oral tablet 75 mg, = 1 Tablet, Orally, BID, PRN as needed for dyspepsia, Maintenance, 01/19/19 11:22:27 EDT Start Date: 01/19/19 Status: Ordered Problem List Condition Effective Dates Status Health Status Informant Anemia(Confirmed) Active Breast lump(Confirmed) Resolved Elevated BP without diagnosis of Active hypertension(Confirmed) Fibromyalgia(Confirmed) Active Reflux Esophagitis(Confirmed) Active Unspecified Active Hypothyroidism(Confirmed) Major depressive disorder, single Active episode, mild(Confirmed) Nontoxic multinodular Active goiter(Confirmed) Ulcer(Confirmed) Resolved Procedures Procedure Date Related Diagnosis Body Site Status Cholecystectomy Laparoscopic 04/27/13 Completed Bone Graft to Left Forearm Fracture 01/2013 Completed ORIF Left Forearm Fracture Repair 2012 Completed Hysterectomy 2009 Completed Shoulder Arthroscopic Procedure 2007 Completed Endoscopy 2006 Completed Breast Biopsy Completed Social History Social History Type Response Smoking Status Never (less than 100 in life time) entered on: 01/28/21 Sex Care Team PersonnelName: Reginald Masters MD Address: [address] [facility] [place] [address] [place] [address]
--- OUTSIDE RECORDS SUMMARY | 2021-10-02 10:06 | XMS_ITS | Continuity of Care Document ---
:1975 Author Organization [facility] Address Unavailable , Care Team Providers Name Role Phone Miguelito Combs Primary Care Physician Encounter German Andrez [id number] Date(s): 01/19/19 - 01/19/19 [place] [address] [place], [place] [address] Encounter Diagnosis Gastritis (Discharge Diagnosis) - 01/19/19 Discharge Disposition: Against Medical Advice Attending Physician: Jes Alcantar MD Admitting Physician: Jes Alcantar MD Referring Physician: None, None Allergies, Adverse Reactions, Alerts Substance Reaction Severity Status penicillin Active iodine topical1 Hives Active sulfa drugs Nausea Severe Active Latex Rash Active Hives Seafood Active 1also Seafood causes hives Functional Status 01/19/19 Activity Status ADL Up to Bathroom Medications Ajovy 225 mg/1.5 mL subcutaneous solution [...] 01/19/19 11:21:21 EDT Start Date: 01/19/19 Status: Ordereddiclofenac sodium 100 mg oral tablet, extended release 100 mg, = 1 Tablet, Orally, Daily, Maintenance, with breakfast, 07/14/18 20:04:16 EDT Start Date: 07/14/18 Status: OrderedSynthroid 25 mCg, Orally, Daily, Maintenance, 05/31/13 21:50:24, Supply Start Date: 05/31/13 Status: OrderedtiZANidine 4 mg, Orally, TID, Maintenance, 01/19/19 11:21:40 EDT Start Date: 01/19/19 Status: OrderedZantac 75 oral tablet 75 mg, = 1 Tablet, Orally, BID, PRN as needed for dyspepsia, Maintenance, 01/19/19 11:22:27 EDT Start Date: 01/19/19 Status: Ordered Mental Status 01/19/19 Hospital Clergy to Visit No 01/19/19 Eye Opening Response Spontaneously Motor Response Luis Fernando 3 Obeys Commands Verbal Response [place] Oriented Luis Fernando Coma Score 15 Amount of Stimulation None Left Upper Extremity Strength [address], [address] Full Resistance Right Upper Extremity Strength 5 Active Movement, Agai nst Full Resistance Left Lower Extremity Strength 5 Active Movement, Again st Full Resistance Right Lower Extremity Strength 5 Active Movement, Agai nst Full Resistance Orientation Oriented x 3, Aware of Situation, Able to Follow Commands Problem List Condition Effective Dates Status Health Status Informant Anemia(Confirmed) Resolved Breast lump(Confirmed) Resolved Fibromyalgia(Confirmed) Active Reflux Esophagitis(Confirmed) Active Unspecified Active Hypothyroidism(Confirmed) Major depressive disorder, single Active episode, mild(Confirmed) Nontoxic multinodular Active goiter(Confirmed) SLE (systemic lupus Active erythematosus)(Confirmed) Ulcer(Confirmed) Resolved Diagnosis Diagnosis Type Effective Dates Health Status Clinical Serv ice Informant Gastritis Discharge 01/19/19 Diagnosis Procedures Procedure Date Related Diagnosis Body Site Status Cholecystectomy Laparoscopic 04/27/13 Completed Bone Graft to Left Forearm Fracture 01/2013 Completed ORIF Left Forearm Fracture Repair 2012 Completed Hysterectomy 2008 Completed Shoulder Arthroscopic Procedure 2007 Completed Endoscopy 2006 Completed Breast Biopsy Completed Results Laboratory List Name Date UA Microscopic 01/19/19 Urinalysis 01/19/19 Urine HCGi, POC 01/19/19 CBC 01/19/19 Comp Metabolic Panel (CMP) 01/19/19 Lipase SerPl QN 01/19/19 Troponin-I Pl QN 01/19/19 Most recent to oldest [Reference Range]: 1 Estimated GFR (CKD-EPI) [>=90 mL/min/1.73m2] >90 mL/mi n/1.73m2 (01/19/19 5:55 AM) Estimated CRCL (CG) [>=59 mL/min] >60 mL/min (01/19/19 5:55 AM) Leukocyte Esterase Ur [Negative] Negative *NA* (01/19/19 6:01 AM) Hgb Ur [Negative] Negative *NA* (01/19/19 6:01 AM) Anion Gap [3-11 mmol/L] 10 mmol/L (01/19/19 5:55 AM) Hct [35.0-49.0 %] 42.5 % (01/19/19 5:55 AM) Hgb [12.0-15.0 GM/dL] 13.9 GM/dL (01/19/19 5:55 AM) MCH [27.0-34.0 pg] 26.7 pg *LOW* (01/19/19 5:55 AM) MCHC [32.0-36.0 GM/dL] 32.7 GM/dL (01/19/19 5:55 AM) MCV [81-99 fL] 82 fL (01/19/19 5:55 AM) MPV [7.0-12.0 fL] 8.6 fL (01/19/19 5:55 AM) Platelet [150-450 k/cumm] 320 k/cumm (01/19/19 5:55 AM) RBC [3.71-5.17 million/cumm] 5.21 million/cumm *HI* (01/19/19 5:55 AM) RDW [11.5-14.5 %] 14.6 % *HI* (01/19/19 5:55 AM) WBC [3.6-10.6 k/cumm] 9.6 k/cumm (01/19/19 5:55 AM) ALT SerPl QN [7-52 Units/L] 26 Units/L (01/19/19 5:55 AM) Albumin SerPl QN [3.5-5.0 GM/dL] 4.4 GM/dL (01/19/19 5:55 AM) Alkaline Phos SerPl QN [25-125 Units/L] 91 Units/L (01/19/19 5:55 AM) AST SerPl QN [13-39 Units/L] 26 Units/L (01/19/19 5:55 AM) Creatinine SerPl QN [0.60-1.20 mg/dL] 0.72 mg/dL (01/19/19 5:55 AM) Sodium SerPl QN [135-145 mmol/L] 135 mmol/L (01/19/19 5:55 AM) Potassium SerPl QN [3.5-5.5 mmol/L] 4.3 mmol/L (01/19/19 5:55 AM) Chloride SerPl QN [98-108 mmol/L] 103 mmol/L (01/19/19 5:55 AM) Carbon Dioxide SerPl QN [22-29 mmol/L] 22 mmol/L (01/19/19 5:55 AM) Glucose SerPl QN [70-99 mg/dL] 104 mg/dL *HI* (01/19/19 5:55 AM) BUN SerPl QN [5-20 mg/dL] 14 mg/dL (01/19/19 5:55 AM) Calcium Total SerPl QN [8.5-10.5 mg/dL] 9.1 mg/dL (01/19/19 5:55 AM) Bilirubin Total SerPl QN [0.0-1.0 mg/dL] 0.5 mg/dL (01/19/19 5:55 AM) Total Protein SerPl QN [6.4-8.0 GM/dL] 7.3 GM/dL (01/19/19 5:55 AM) Lipase SerPl QN [7-59 Units/L] 10 Units/L (01/19/19 5:55 AM) Troponin-I Pl QN [<=0.03 ng/mL] <0.03 ng/mL (01/19/19 5:55 AM) Color [Colorless] Bhavna (01/19/19 6:01 AM) Clarity [Clear] Slightly Cloudy *NA* (01/19/19 6:01 AM) Specific [place] [1.003-1.030] 1.027 (01/19/19 6:01 AM) pH [5.0-8.0] 5.0 (01/19/19 6:01 AM) Protein [Negative mg/dL] 30 mg/dL *ABN* (01/19/19 6:01 AM) Glucose [Normal mg/dL] Normal mg/dL *NA* (01/19/19 6:01 AM) Ketones [Negative mg/dL] Negative mg/dL *NA* (01/19/19 6:01 AM) Bilirubin [Negative mg/dL] Negative mg/dL *NA* (01/19/19 6:01 AM) Nitrite [Negative] Negative *NA* (01/19/19 6:01 AM) Urobilinogen [Normal mg/dL] Normal mg/dL *NA* (01/19/19 6:01 AM) RBC [0-2 /hpf] 0-2 /hpf *NA* (01/19/19 6:01 AM) WBC [0-5 /hpf] 0-5 /hpf *NA* (01/19/19 6:01 AM) Bacteria [None /hpf] Moderate /hpf *ABN* (01/19/19 6:01 AM) Squamous Epithelial [Few /hpf] Few /hpf *NA* (01/19/19 6:01 AM) Mucous [None /hpf] Present /hpf *NA* (01/19/19 6:01 AM) Hyaline Casts [None /lpf] 0-2 /lpf *NA* (01/19/19 6:01 AM) Urine HCG, POC Negative 1 *NA* (01/19/19 5:59 AM) 1Result Comment: Test performed at: [facility] [address] [place] [address] Vital Signs Most recent to oldest [Reference 1 2 Range]: BSAM2 Weight in kg 2.15 m2 (01/19/19 11:00 AM) Blood Pressure [90-140/60-90 136/79 mmHg 148/119 mmH g mmHg] (01/19/19 8:51 AM) *HI* (01/19/19 4:52 AM) Heart Rate [60-100 bpm] 80 bpm 94 bpm (01/19/19 8:51 AM) (01/19/19 4:52 AM) Height CM 172.8 cm 172.7 cm (01/19/19 11:00 AM) (01/19/19 4:52 AM) Height method Reported (01/19/19 11:00 AM) [place] Body Weight 63.97 kg 63.88 kg (01/19/19 11:00 AM) (01/19/19 4:52 AM) Last Vital Signs Documented VITAL SIGNS Temp F: Temp C: 36.4 DegC (01-19-2019 04:52) Heart Rate: 94 bpm (01-19-2019 04:52) Resp Rate: 20 br/min (01-19-2019 04:52) Peripheral Pulse Rate: BP #1: 148 / 119 mmHg (01-19-2019 04:52) SpO2 (%): 99 % (01-19-2019 04:52) O2 Flow (l/min): O2 Device: Room air (01-19-2019 04:52) FiO2 (%): (01/19/19 4:59 AM) Mean Arterial Pressure #1 97 mmHg (01/19/19 8:51 AM) Mean Arterial Pressure #1 98 mmHg 129 mmHg Calculated (01/19/19 8:51 AM) (01/19/19 4:52 AM) Method BP #1 Automatic/Non Invasive (01/19/19 4:52 AM) Method Heart Rate Pulse Oximeter Pulse Oximeter (01/19/19 8:51 AM) (01/19/19 4:52 AM) Method Respiratory Rate Observation Observation (01/19/19 8:51 AM) (01/19/19 4:52 AM) Oxygen Delivery Room air Room air (01/19/19 8:51 AM) (01/19/19 4:52 AM) Oxygen Saturation [92-100 %] 98 % 99 % (01/19/19 8:51 AM) (01/19/19 4:52 AM) Respiratory Rate [12-20 br/min] 20 br/min 20 br/mi n (01/19/19 8:51 AM) (01/19/19 4:52 AM) Temperature [place] [36.4-38.3 DegC] 37.1 DegC 36.4 De gC (01/19/19 11:56 AM) (01/19/19 4:52 AM) Temperature Far Calculated 98.8 DegF 97.5 DegF [97.6-100.9 DegF] (01/19/19 11:56 AM) *LOW* (01/19/19 4:52 AM) Temperature Method Oral Oral (01/19/19 11:56 AM) (01/19/19 4:52 AM) Weight KG 96.63 kg 100.6 kg (01/19/19 11:00 AM) (01/19/19 4:52 AM) Weight method Actual - Bed Scale Actual - Standing (01/19/19 11:00 AM) (01/19/19 4:52 AM) Social History Social History Type Response Smoking Status Never Smoker entered on: 11/11/14 Sex
--- OUTSIDE RECORDS SUMMARY | 2021-10-02 10:06 | XMS_ITS | Continuity of Care Document ---
:1975 Author Organization [facility] [place] Address [address] [place] [address]- Care Team Providers Name Role Phone Reginald Masters Primary Care Physician Encounter German Worthington Date(s): 02/12/21 - 02/12/21 [facility] [place] [address] [place] [address]- Encounter Diagnosis Fibromyalgia (Discharge Diagnosis) - 02/12/21 Discharge Disposition: Routine Discharge Allergies, Adverse Reactions, Alerts Substance Reaction Severity Status penicillin Active iodine topical1 Hives Active Seafood Active sulfa drugs Nausea Severe Active Latex Rash Active Hives 1also Seafood causes hives Assessment and Plan Future AppointmentsAppointment Date:04/22/2021 11:05:00 AM Scheduled Provider:Beverly Argueta MD Location:[facility] [place] 3 Rheumatology Appointment Type:Rheum Established Future Scheduled TestsLaboratoryRNA Polymerase 3 AB 02/11/21Vitamin D Total 02/11/21Ferritin SerPl QN 01/28/21CBC w/Differential 02/11/21C3 Complement Ser QN 02/11/21C4 Complement Ser QN 02/11/21Comp Metabolic Panel 02/11/21CRP SerPl QN 02/11/21CK SerPl QN 02/11/21Hgb A1C HPLC Bld QN 01/28/21Lipid Panel SerPl QN 01/28/21PRT/HIGH PRESSURE BOILER OPERATOR Ratio UR 02/11/21RF QN 02/11/21Vitamin B12 SerPl [...] chew), 01/28/21 11:20:00 EDT, Pharmacy: [facility]/pharmacy #[id number], 1 Capsule Orally BID,Instr:(do not crush [...] 11, 01/28/21 11:20:00 EDT, Pharmacy: [facility]/pharmacy #[id number], 1 Capsule Orally Daily, 172.7, cm, 01/28/21 10:33:00 EDT, Height CM, 99.5, kg, 01/28/21 10:36:00... Start Date: 01/28/21 Status: OrderedpredniSONE 10 mg oral tablet 10 mg, = 1 Tablet, Orally, Daily, Maintenance, Dispense: 21 Tablet, Refills: 0, Total Refills: 0, take 1 tablet daily for 2 weeks, then 1/2 tablet daily for 2 weeks, 01/28/21 11:20:00 EDT, Pharmacy: [facility]/pharmacy #[id number], 1 Tablet Orally Daily,Instr:take... Start Date: [...] mild(Confirmed) Nontoxic multinodular Active goiter(Confirmed) Ulcer(Confirmed) Resolved Diagnosis Diagnosis Type Effective Dates Health Status Clinical In formant Service Fibromyalgia Discharge 02/12/21 Non-Specified Diagnosis Procedures Procedure Date Related Diagnosis Body [...]
--- OUTSIDE RECORDS SUMMARY | 2021-10-02 10:06 | XMS_ITS | Continuity of Care Document ---
:1975 Author Organization [facility] Address [address] [place] [address]- Care Team Providers Name Role Phone Miguelito Combs Primary Care Physician Encounter German Maguire [id number] Date(s): 07/08/18 - 07/08/18 [facility] [place] [address] [place] [address]- [facility] Encounter Diagnosis SLE (systemic lupus erythematosus) (Discharge Diagnosis) - 07/08/18 Major depressive disorder, single episode, mild (Discharge Diagnosis) - 07/08/18 Nontoxic multinodular goiter (Discharge Diagnosis) - 07/08/18 Attending Physician: Miguelito Combs MD Admitting Physician: Miguelito Combs MD Referring Physician: Miguelito Combs MD Allergies, Adverse Reactions, Alerts Substance Reaction Severity [...] Start Date: 08/22/13 Status: Ordered Mental Status 07/08/18 Feeling Down, Depressed, Hopeless Not at all [...] Dates Health Clinical Infor mant Status Service Nontoxic Discharge 07/08/18 Non-Specified multinodular goiter Diagnosis Major depressive Discharge 07/08/18 Non-Specified disorder, single Diagnosis episode, mild SLE (systemic lupus Discharge 07/08/18 Non-Specified erythematosus) Diagnosis Procedures Procedure Date Related Diagnosis Body Site Status Cholecystectomy Laparoscopic 04/27/13 Completed Bone Graft to Left Forearm Fracture 01/2013 Completed ORIF Left Forearm Fracture Repair 2012 Completed Hysterectomy 2008 Completed Shoulder Arthroscopic Procedure 2007 Completed Endoscopy 2006 Completed Breast Biopsy Completed Vital Signs Most recent to oldest [Reference Range]: 1 BMI Weight in kg 32.2 kg/m2 (07/08/18 11:40 AM) BSAM2 Weight in kg 2.15 m2 (07/08/18 11:40 AM) Blood Pressure [90-140/60-90 mmHg] 163/99 mmHg *HI* (07/08/18 11:40 AM) Heart Rate [60-100 bpm] 90 bpm (07/08/18 11:40 AM) Height CM 172.7 cm (07/08/18 11:40 AM) [place] Body Weight 63.88 kg (07/08/18 11:40 AM) Mean Arterial Pressure #1 Calculated 120 mmHg (07/08/18 11:40 AM) Temperature [place] [36.4-38.3 DegC] 36.6 DegC (07/08/18 11:40 AM) Temperature Far Calculated [97.6-100.9 DegF] 97.9 DegF (07/08/18 11:40 AM) Weight KG 96.0 kg (07/08/18 11:40 AM) Social History Social History Type Response Smoking Status Never Smoker entered on: 11/11/14 Sex
--- OUTSIDE RECORDS SUMMARY | 2021-10-02 10:06 | XMS_ITS | Continuity of Care Document ---
:1975 Author Organization [facility] [place] Address [address] [place] [address]- Care Team Providers Name Role Phone Reginald Masters Primary Care Physician Encounter German Worthington Date(s): 02/12/21 - 02/12/21 [facility] [place] [address] [place] [address]- Encounter Diagnosis Fibromyalgia (Discharge Diagnosis) - 02/12/21 Discharge Disposition: Routine Discharge Allergies, Adverse Reactions, Alerts Substance Reaction Severity Status penicillin Active iodine topical1 Hives Active sulfa drugs Nausea Severe Active Seafood Active Latex Rash Active Hives 1also Seafood causes hives Assessment and Plan Future AppointmentsAppointment Date:04/22/2021 11:05:00 AM Scheduled Provider:Beverly Argueta MD Location:[facility] [place] 3 Rheumatology Appointment Type:Rheum Established Future Scheduled TestsLaboratoryRNA Polymerase 3 AB 02/11/21Vitamin D Total 02/11/21Ferritin SerPl QN 01/28/21CBC w/Differential 02/11/21C3 Complement Ser QN 02/11/21C4 Complement Ser QN 02/11/21Comp Metabolic Panel 02/11/21CRP SerPl QN 02/11/21CK SerPl QN 02/11/21Hgb A1C HPLC Bld QN 01/28/21Lipid Panel SerPl QN 01/28/21PRT/PLASTER CASTER Ratio UR 02/11/21RF QN 02/11/21Vitamin B12 SerPl [...] crush or chew), 01/28/21 11:20:00 EDT, Pharmacy: [facility]/pharmacy #[id number], 1 Capsule Orally BID,Instr:(do not crush [...] Total Refills: 11, 01/28/21 11:20:00 EDT, Pharmacy: [facility]/pharmacy #[id number], 1 Capsule Orally Daily, 172.7, cm, 01/28/21 10:33:00 EDT, Height CM, 99.5, kg, 01/28/21 10:36:00... Start Date: 01/28/21 Status: OrderedpredniSONE 10 mg oral tablet 10 mg, = 1 Tablet, Orally, Daily, Maintenance, Dispense: 21 Tablet, Refills: 0, Total Refills: 0, take 1 tablet daily for 2 weeks, then 1/2 tablet daily for 2 weeks, 01/28/21 11:20:00 EDT, Pharmacy: [facility]/pharmacy #[id number], 1 Tablet Orally Daily,Instr:take... Start Date: [...]
--- OUTSIDE RECORDS SUMMARY | 2021-10-02 10:06 | XMS_ITS | Continuity of Care Document ---
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 Sicca syndrome (Discharge Diagnosis) - 02/11/21 Polyarthralgia (Discharge Diagnosis) - 02/11/21 Fibromyalgia (Discharge Diagnosis) - 02/11/21 Discharge Disposition: Routine Discharge Attending Physician: Beverly Argueta MD Admitting Physician: Beverly Argueta MD Referring Physician: Angela Lyon NP Allergies, Adverse Reactions, Alerts Substance Reaction Severity Status penicillin Active iodine topical1 Hives Active Seafood Active sulfa drugs Nausea Severe Active Latex Rash Active Hives 1also Seafood causes hives Assessment and Plan Future AppointmentsAppointment Date:04/22/2021 11:05:00 AM Scheduled Provider:Beverly Argueta MD Location:[facility] [place] 3 Rheumatology Appointment Type:Rheum Established Future Scheduled TestsLaboratoryRNA Polymerase 3 AB 02/11/21Vitamin D Total 02/11/21Ferritin SerPl QN 01/28/21CBC w/Differential 02/11/21C3 Complement Ser QN 02/11/21C4 Complement Ser QN 02/11/21Comp Metabolic Panel 02/11/21CRP SerPl QN 02/11/21CK SerPl QN 02/11/21Hgb A1C HPLC Bld QN 01/28/21Lipid Panel SerPl QN 01/28/21PRT/DATA ANALYTICS SPECIALIST Ratio UR 02/11/21RF QN 02/11/21Vitamin B12 SerPl [...] crush or chew), 01/28/21 11:20:00 EDT, Pharmacy: [facility]/pharmacy #[id number], 1 Capsule Orally BID,Instr:(do not crush or [...] Total Refills: 11, 01/28/21 11:20:00 EDT, Pharmacy: [facility]/pharmacy #[id number], 1 Capsule Orally Daily, [...] 01/28/21 11:20:00 EDT, [id number], 1 Tablet Orally Daily,Instr:take... Start Date: [...] Dates Health Clinical Infor mant Status Service Polyarthralgia Discharge 02/11/21 Diagnosis Sicca syndrome Discharge 02/11/21 Diagnosis Photosensitivity Discharge 02/11/21 Diagnosis Fibromyalgia Discharge 02/11/21 Diagnosis Procedures Procedure Date Related Diagnosis Body Site Status Cholecystectomy Laparoscopic 04/27/13 Completed Bone Graft to Left Forearm Fracture 01/2013 Completed ORIF Left Forearm Fracture Repair 2012 Completed Hysterectomy 2008 Completed Shoulder Arthroscopic Procedure 2007 Completed Endoscopy 2006 Completed Breast Biopsy Completed Vital Signs Most recent to oldest [Reference Range]: 1 BMI Weight in kg 33.2 kg/m2 (02/11/21 1:45 PM) BSAM2 Weight in kg 2.18 m2 (02/11/21 1:45 PM) Blood Pressure [90-140/60-90 mmHg] 143/87 mmHg *HI* (02/11/21 1:45 PM) Heart Rate [60-100 bpm] 96 bpm (02/11/21 1:45 PM) Height CM 172.7 cm (02/11/21 1:45 PM) [place] Body Weight 63.88 kg (02/11/21 1:45 PM) Mean Arterial Pressure #1 Calculated 106 mmHg (02/11/21 1:45 PM) Oxygen Saturation [92-100 %] 97 % (02/11/21 1:45 PM) Respiratory Rate [14-20 br/min] 16 br/min (02/11/21 1:45 PM) Temperature [place] [36.4-38.3 DegC] 36.0 DegC *LOW* (02/11/21 1:45 PM) Temperature Far Calculated [97.6-100.9 DegF] 96.8 DegF *LOW* (02/11/21 1:45 PM) Weight KG 98.9 kg (02/11/21 1:45 PM) Social History Social History Type Response Smoking Status Never (less than 100 in life time) entered on: 01/28/21 Sex
--- OUTSIDE RECORDS SUMMARY | 2021-10-02 10:06 | XMS_ITS | Continuity of Care Document ---
:1975 Author Organization [facility] [place] Address [address] [place] [address]- Care Team Providers Name Role Phone Reginald Masters Primary Care Physician Encounter German Maguire [id number] Date(s): 01/24/21 - 01/24/21 [facility] [place] [address] [place] [address] [place] [address]- Discharge Disposition: Routine Discharge Attending Physician: Angela Lyon NP Admitting Physician: Angela Lyon NP Referring Physician: Angela Lyon NP Allergies, Adverse Reactions, Alerts Substance Reaction Severity Status penicillin Active iodine topical1 Hives Active sulfa drugs Nausea Severe Active Latex Rash Active Hives Seafood Active 1also Seafood causes hives Medications Ajovy 225 mg/1.5 mL subcutaneous solution [...] SLE (systemic lupus Active erythematosus)(Confirmed) Ulcer(Confirmed) Resolved Procedures Procedure Date Related Diagnosis [...]
--- NOTE | 2021-10-02 10:09 | W.ED.GENAD ---
Discharge Plan Disposition Patient Disposition: AGAINST MEDICAL ADVICE Condition: Improving Discharge Details Clinical Impression: Headache, Nausea & vomiting Primary Care Provider: Khushi,Local ED Provider: Elva Chavarria Home Meds and New Rx's Prescriptions: New ondansetron 4 mg tablet,disintegrating 4 mg PO Q8H 4 Days Qty: 12 0RF No Action omeprazole 20 mg Capsule,Delayed Release(Dr/Ec) 20 mg PO DAILY duloxetine 60 mg Capsule,Delayed Release(Dr/Ec) 60 mg PO BID Discharge Instructions Instructions: Acute Nausea and Vomiting (ED), General Headache (ED) Additional Instructions: At this time you have elected to leave prior to your complete work-up at this time I cannot rule out any significant problem concerning her headache or abdomen. I do recommend that you follow-up with your PCP regarding your blood pressure and your anemia. Follow up with primary care provider in 3-5 days. Return to ED sooner if any worsening headache, fever, dizziness, fainting, or concerns. Increase oral fluids. Please take the nausea medication as directed. Discharge Data Discharge Date/Time-TO BE ENTERED AT DEPARTURE: 10/02/21 11:49 Medical Decision Making Patient presents with headache nausea vomiting which began this morning. She reports a severe posterior headache, she is hypertensive upon arrival she does not take any blood pressure medications, she does have a history of cholecystectomy and appendectomy. She has been taking for migraine medication. She denies any recent head injuries CBC shows white blood cell count of 12.93, RBCs 5.72 she does have a hypovolemic hypochromic chronic appearing anemia, absolute neutrophils 7.38, glucose 133, alk phos 144 Fluvid swab at this time is pending, urinalysis ordered and urine test which is also pending at this time. Patient has received Zofran and normal saline [address] head abdomen pelvis without contrast ordered. Will consider blood pressure medication. 1135: Patient reevaluation she reports that she feels much better after the nausea medication and would like to be discharged. Her blood pressure still elevated now 147/90, I did discuss her labs with her and CT orders for head CT and abdominal CT she verbalizes understanding and request to follow-up [place] she is tomorrow. She reports she does have a PCP there. CT head abdomen canceled. I did discuss that we are still pending lab result she verbalizes understanding. Patient requesting to leave AMA. The patient appears clinically sober and is not under the influence of any known substances. Discussed risks and benefits with patient. Patient verbalizes understanding of situation and the risks of leaving including worsening condition, developing disability, including but not limited to . Discussed results of labs that have been resulted to this point, if they were performed and recommendations for further treatment and/or observation. The patient verbalizes understanding of the results discussed. At this time patient has opted to leave against medical advice. Patient is alert and oriented and has the capacity to make own decisions. Medical Records Medical records reviewed: Yes I reviewed the patient's medical records. Lab Data Lab results reviewed: Yes I reviewed the patient's lab results. Labs: Laboratory Tests Range/Units 10/02/21 10/02/21 10/02/21 10:20 10:25 10:25 WBC (4.4-10.8) 10^3/uL 12.93 H RBC (3.93-5.22) 10^6/uL 5.72 H Hgb (11.2-15.7) g/dL 12.2 Hct (36.0-46.0) % 41.4 MCV (80-95) fL 72 L MCH (27.0-33.0) pg 21.3 L MCHC (32.0-36.0) % 29.5 L RDW (11.7-14.6) % 17.2 H Plt Count (130-400) 10^3/uL 366 MPV (8.0-11.0) fL 9.9 Immature Gran % 0.5 Neutrophils % 80.3 Lymphocytes % 13.5 Monocytes % 4.8 Eosinophils % 0.4 Basophils % 0.5 Nucleated RBC % (0.0-0.3) % 0.0 Absolute Neutrophils (1.2-6.7) 10^3/uL 10.38 H Absolute Lymphocytes (1.2-3.4) 10^3/uL 1.75 Absolute Monocytes (0.1-0.8) 10^3/uL 0.62 Absolute Eosinophils (0.0-0.7) 10^3/uL 0.05 Absolute Basophils (0.0-0.2) 10^3/uL 0.06 RBC Morphology See Below Hypochromasia 1+ Microcytosis 2+ Sodium (136-145) mmol/L 138 Potassium (3.5-5.1) mmol/L 4.0 Chloride (98-107) mmol/L 103 Carbon Dioxide (21.0-32.0) mmol/L 26.3 Anion Gap (3-11) mmol/L 8.7 BUN (7-18) mg/dL 11 Creatinine (0.55-1.02) mg/dL 0.9 Estimated GFR/1.73 m2 (mL/min/1.73m2) >= 60.00 Glucose (74-106) mg/dL 133 H Calcium (8.5-10.1) mg/dL 9.5 Magnesium (1.8-2.4) mg/dL 2.1 Total Bilirubin (0.2-1.0) mg/dL 0.3 AST (15-37) U/L 23 ALT (14-59) U/L 28 Alkaline Phosphatase (46-116) U/L 144 H Total Protein (6.4-8.2) g/dL 8.1 Albumin (3.4-5.0) g/dL 3.7 Lipase (73-393) U/L 40 Urine Color Urine Clarity Urine pH Ur Specific [place] Urine Protein Urine Ketones Urine Blood Urine Nitrite Urine Bilirubin Urine Urobilinogen Ur Leukocyte Esterase Urine Glucose COVID-19 Source Nasopharynx SARS-CoV-2 (PCR) (Negative) Negative Influenza Type A (PCR) (Negative) Negative Influenza Type B (PCR) (Negative) Negative RSV (PCR) (Negative) Negative Range/Units 10/02/21 10/02/21 11:24 11:36 WBC (4.4-10.8) 10^3/uL RBC (3.93-5.22) 10^6/uL Hgb (11.2-15.7) g/dL Hct (36.0-46.0) % MCV (80-95) fL MCH (27.0-33.0) pg MCHC (32.0-36.0) % RDW (11.7-14.6) % Plt Count (130-400) 10^3/uL MPV (8.0-11.0) fL Immature Gran % Neutrophils % Lymphocytes % Monocytes % Eosinophils % Basophils % Nucleated RBC % (0.0-0.3) % Absolute Neutrophils (1.2-6.7) 10^3/uL Absolute Lymphocytes (1.2-3.4) 10^3/uL Absolute Monocytes (0.1-0.8) 10^3/uL Absolute Eosinophils (0.0-0.7) 10^3/uL Absolute Basophils (0.0-0.2) 10^3/uL RBC Morphology Hypochromasia Microcytosis Sodium (136-145) mmol/L Potassium (3.5-5.1) mmol/L Chloride (98-107) mmol/L Carbon Dioxide (21.0-32.0) mmol/L Anion Gap (3-11) mmol/L BUN (7-18) mg/dL Creatinine (0.55-1.02) mg/dL Estimated GFR/1.73 m2 (mL/min/1.73m2) Glucose (74-106) mg/dL Calcium (8.5-10.1) mg/dL Magnesium (1.8-2.4) mg/dL Total Bilirubin (0.2-1.0) mg/dL AST (15-37) U/L ALT (14-59) U/L Alkaline Phosphatase (46-116) U/L Total Protein (6.4-8.2) g/dL Albumin (3.4-5.0) g/dL Lipase (73-393) U/L Urine Color Cancelled Cancelled Urine Clarity Cancelled Cancelled Urine pH Cancelled Cancelled Ur Specific [place] Cancelled Cancelled Urine Protein Cancelled Cancelled Urine Ketones Cancelled Cancelled Urine Blood Cancelled Cancelled Urine Nitrite Cancelled Cancelled Urine Bilirubin Cancelled Cancelled Urine Urobilinogen Cancelled Cancelled Ur Leukocyte Esterase Cancelled Cancelled Urine Glucose Cancelled Cancelled COVID-19 Source SARS-CoV-2 (PCR) (Negative) Influenza Type A (PCR) (Negative) Influenza Type B (PCR) (Negative) RSV (PCR) (Negative) HPI General Mode of arrival: ambulatory. Date/Time Provider Initiated Documentation: 10/02/21 09:52. Limitations to Documentation: no limitations. Information obtained by: patient, RN notes reviewed and old records reviewed. HPI Narrative: 46-year-old female presents to the ER with chief complaint of posterior headache, nausea vomiting and abdominal pain which began this morning upon wakening. She does have a history of migraine headache. She reports that she took some [id number] migraine medicine prior to arrival. On initial exam she is neurologically intact , she is hypertensive blood pressure initially 173/101. She is complaining of some right upper quadrant and mid to left lower quadrant abdominal pain. Related Data Home Medications Medication Instructions Recorded Confirmed duloxetine 60 mg capsule,delayed 60 mg PO BID 10/02/21 10/02/21 release omeprazole 20 mg capsule,delayed 20 mg PO DAILY 10/02/21 10/02/21 release ondansetron 4 mg disintegrating 4 mg PO Q8H 4 days #12 tabs 10/02/21 tablet Previous Rx's Medication Instructions Recorded ondansetron 4 mg disintegrating 4 mg PO Q8H 4 days #12 tabs 10/02/21 tablet Allergies Allergy/AdvReac Type Severity Reaction Status Date / Time Penicillins AdvReac Unverified 10/02/21 10:01 General Stated Complaint: Abd Prob KVNG: 3 Review of Systems All systems reviewed & are unremarkable except as noted in HPI and below Constitutional Constitutional: Reports headache(s) ENT Ears, Nose, Mouth, and Throat: Reports headache(s) Neurologic Neurologic: Reports headache(s) PFSH All Active Problems (Updated 10/02/21 @ 11:01 by Elva Chavarria) Headache (Acute) Nausea & vomiting (Acute) Hx of appendectomy (Chronic) Hx of cholecystectomy (Chronic) Social History Smoking/Tobacco Use Status: Never Smoking risk assessment performed?: Yes Alcohol Intake: never Drug use: Never Substance use type: does not use Do you feel safe at home: Yes Do you feel safe in your relationship?: Yes Exam Narrative Exam Narrative: Constitutional: Alert and oriented x3. Appears stated age. Normal body habitus. Head: Normocephalic, no trauma. Eyes: Pupils PERRL, Red reflex noted, EOM's intact. Eyelids symmetrical without lesions, discharge, or swelling. ENT: Bilateral TM's WNL, External ear normal to inspection, no mastoid TTP, swelling, or erythema, Nasal turbinates WNL, no nasal discharge. Normal dentition, Posterior pharynx WNL, no exudate. Chest: RRR, Normal S1, S2, distal pulses intact. Resp: Lungs clear to auscultation bilaterally, no wheezes, rales, or rhonchi. Abdomen: Soft, non-distended, Normoactive bowel sounds all 4 quads. Tenderness with palpation right upper quadrant left mid to right lower quadrant. Musculoskeletal: Normal gait, 5/5 strength to all four extremities. Skin: Pale, no suspicious rashes or lesions. Capillary refill less than 2 sec. Neurologic: Cranial nerves II-XII intact. Alert and oriented x 3. Motor: No deficits noted. Sensory: Intact bilaterally all 4 extremities. Reflexes: DTR's intact bilaterally.. Hematologic/Lymphatic: No ecchymosis, no lymphadenopathy. Course Vital Signs Vital signs: Vital Signs Pulse 97 H 10/02/21 09:56 Respiratory Rate 16 10/02/21 09:56 Blood Pressure 173/101 H 10/02/21 09:56 Pulse Oximetry 93 10/02/21 09:56 Pulse 97 H 10/02/21 09:56 Respiratory Rate 16 10/02/21 09:56 Respiratory Effort 10/02/21 09:59 Blood Pressure 173/101 H 10/02/21 09:56 Blood Pressure Position Sitting 10/02/21 09:56 Pulse Oximetry 93 10/02/21 09:56 Oxygen Delivery Method Room Air 10/02/21 09:56 Oxygen Flow Rate 0 10/02/21 09:56 Pain Level 7 10/02/21 09:59
[2021-10-02] MEDS: Normal Saline 1,000 ML 1000 ML IV (10:27)
[2021-10-02] MEDS: Ondansetron 4 MG/2 ML VIAL IVP (10:27)
[2021-10-02 10:30] LABS: Abs Immature Grans 0.06 10^3/uL (0.0-0.06); Absolute Basophil Count 0.06 10^3/uL (0.0-0.2); Absolute Eosinophil Count 0.05 10^3/uL (0.0-0.7); Absolute Monocyte Count 0.62 10^3/uL (0.1-0.8); Basophils % 0.5; Eosinophils % 0.4; HCT 41.4 % (36.0-46.0); HGB 12.2 g/dL (11.2-15.7); Immature Grans % 0.5; Lymphocytes % 13.5; MCH 21.3 pg (27.0-33.0); MCHC 29.5 % (32.0-36.0); MCV 72 fL (80-95); MPV 9.9 fL (8.0-11.0); Monocytes % 4.8; Neutrophils % 80.3; Platelet Count 366 10^3/uL (130-400); RBC 5.72 10^6/uL (3.93-5.22); RDW 17.2 % (11.7-14.6); RDW-SD 43.8 fL; WBC 12.93 10^3/uL (4.4-10.8)
[2021-10-02 10:31] LABS: Absolute Lymphocyte Count 1.75 10^3/uL (1.2-3.4); Absolute Neutrophil Count 10.38 10^3/uL (1.2-6.7)
[2021-10-02 10:44] LABS: ALT 28 U/L (14-59); AST 23 U/L (15-37); Albumin 3.7 g/dL (3.4-5.0); Alkaline Phosphatase 144 U/L (46-116); Anion Gap 8.7 mmol/L (3-11); BUN 11 mg/dL (7-18); Bilirubin, Total 0.3 mg/dL (0.2-1.0); CO2 26.3 mmol/L (21.0-32.0); CREATININE 0.9 mg/dL (0.55-1.02); Calcium 9.5 mg/dL (8.5-10.1); Chloride 103 mmol/L (98-107); Glucose 133 mg/dL (74-106); Lipase 40 U/L (73-393); Magnesium 2.1 mg/dL (1.8-2.4); Sodium 138 mmol/L (136-145); Total Protein 8.1 g/dL (6.4-8.2)
[2021-10-02 10:48] LABS: Diff Comment RBC Morph Reviewed
[2021-10-02 10:49] LABS: Hypochromasia 1+; Microcytosis 2+
[2021-10-02 12:23] LABS: COVID-19 PCR Negative (Negative); Influenza A PCR Negative (Negative); Influenza B PCR Negative (Negative); RSV PCR Negative (Negative)
[2021-10-02 12:33] LABS: Source Nasopharynx
== END 2021-10-02 11:49 | disposition left against medical advice (07) ==
PROVIDERS: Emergency Provider Registered Nurse Emergency
DX: R11.2 Nausea with vomiting, unspecified (principal); R51.9 Headache, unspecified; Z53.29 Procedure and treatment not carried out because of patient's decision for other reasons
CPT/HCPCS: 36415; 80053; 83690; 87637; 96361; 96374; 99283; 99284; 81003; 83735; 85025; J2405